=== PATIENT | male | born 1975 | race Two or more races ===

== ENCOUNTER 2020-08-31 21:27 | Emergency (ER) | payer SELFPAY ==
[~2020-08-31] VITALS: Ht 167.6 cm; Wt 81.3 kg
[2020-08-31 21:33] VITALS: BP 125/86
[2020-08-31] MEDS ORDERED: KETOROLAC 30 MG/1 ML ONE (21:51)
[2020-08-31] MEDS ORDERED: DIAZEPAM 5 MG TABLET ONE (21:51)
[2020-08-31] MEDS ORDERED: ONDANSETRON ODT 4 MG ONE (21:51)
[2020-08-31] MEDS ORDERED: ONDANSETRON ODT 4 MG PO ONE (22:00)
[2020-08-31] MEDS ORDERED: DIAZEPAM 5 MG TABLET PO ONE (22:00)
[2020-08-31] MEDS ORDERED: KETOROLAC 30 MG/1 ML IM ONE (22:00)
[2020-08-31] MEDS ORDERED: PLEASE ENTER ALLERGIES MC SCH (22:00)
[2020-08-31 22:18] LABS: MICROSCOPIC NOT IND
== END 2020-08-31 23:19 | disposition home or self-care (01) ==
LOC: ED 23:06
DX: M54.5 Low back pain (principal); I10 Essential (primary) hypertension; E11.9 Type 2 diabetes mellitus without complications
CPT/HCPCS: 81003; 96372; 99283; J1885; Q0162